=== PATIENT | female | born 1935 | race Caucasian/White ===

== ENCOUNTER 2018-10-10 08:35 | Inpatient (IN) ==
--- NOTE | 2018-09-25 16:45 | PAT Medication Instructions ---
Medication Instructions Date of Service September 26, 2018 Home Medications acetaminophen [Tylenol Extra Strength] 1,000 mg PO TID NEEDED fentanyl 50 mcg TRANSDERMAL Q72H metoprolol tartrate 50 mg PO BID omeprazole 20 mg PO BID oxybutynin chloride 5 mg PO BID NEEDED warfarin 2 mg PO HS furosemide 40 mg PO QAM oxycodone 5 mg PO Q4H NEEDED sennosides [senna] 17.2 mg PO HS solifenacin [Vesicare] 5 mg PO QAM Continue as directed fentanyl 50 mcg TRANSDERMAL Q72H ASK your prescriber and surgeon warfarin 2 mg PO HS DO NOT take the morning of surgery furosemide 40 mg PO QAM Take morning of surgery With a small sip of water, OTHERWISE NOTHING TO EAT OR DRINK AFTER MIDNIGHT: acetaminophen [Tylenol Extra Strength] 1,000 mg PO TID NEEDED (if needed; stop 4 hours before midnight) fentanyl 50 mcg TRANSDERMAL Q72H metoprolol tartrate 50 mg PO BID omeprazole 20 mg PO BID oxybutynin chloride 5 mg PO BID NEEDED (if needed) solifenacin [Vesicare] 5 mg PO QAM oxycodone 5 mg PO Q4H NEEDED (if needed) Take evening before surgery acetaminophen [Tylenol Extra Strength] 1,000 mg PO TID NEEDED (if needed) fentanyl 50 mcg TRANSDERMAL Q72H metoprolol tartrate 50 mg PO BID omeprazole 20 mg PO BID oxybutynin chloride 5 mg PO BID NEEDED (if needed) sennosides [senna] 17.2 mg PO HS oxycodone 5 mg PO Q4H NEEDED (if needed) Other Notes If you have any questions please call us at [phone] or [phone] or [phone] or [phone]
--- NOTE | 2018-09-26 11:03 | Anesthesiology Consultation ---
Date of Service September 26, 2018 Assessment & Plan (1) Encounter for pre-operative examination: - No prior anesthesia records available. +Limited neck extension that may make intubation difficult. - Will schedule patient for arterial line due to her multiple comorbidities. Chart Review Chart Review: Acceptable Risk for Surgery and Patient seen in Pre Admission Testing Consults Requested medical (Dr. Joe) Patient was last seen by PCP, Dr. Joe, on 08/22/18 for monthly visit. An addendum was added to this note on 09/25 which states "I see no contraindication for the elected surgery." Teaching & Discussion Pre-Anesthesia Teaching/Discussion Notes: Instructed NPO after midnight before surgery, except medications with 15 cc of water. Medication instructions provided according to the PAT guidelines. History Surgery Operation Date: 10/10/18 08:15 Proposed Procedures p T10-T11, T11-T12, T12-L1, L1-L2, L2-L3 Removal Spinal Rods - Isaac Felix, Height/Weight Height: 5 ft 5 in Weight: 66.678 kg Allergies Allergy/AdvReac Type Severity Reaction Status Date / Time hydrocodone AdvReac Intermediate change in Verified 09/24/18 08:39 mental status - CONFUSION gabapentin AdvReac Unknown altered Unverified 09/24/18 08:39 mental status - CONFUSION Medications Home Medications Medication Instructions Recorded Confirmed Last Taken acetaminophen [Tylenol Extra 1,000 mg PO TID PRN 09/12/18 09/24/18 09/12/18 Strength] fentanyl 50 mcg TRANSDERMAL Q72H 09/12/18 09/24/18 09/09/18 metoprolol tartrate 50 mg PO BID 09/12/18 09/24/18 09/12/18 omeprazole 20 mg PO BID 09/12/18 09/24/18 09/12/18 oxybutynin chloride 5 mg PO BID PRN 09/12/18 09/24/18 Unknown warfarin 2 mg PO HS 09/12/18 09/24/18 09/11/18 furosemide 40 mg PO QAM 09/24/18 09/24/18 Unknown oxycodone 5 mg PO Q4H PRN 09/24/18 09/24/18 Unknown sennosides [senna] 17.2 mg PO HS 09/24/18 09/24/18 Unknown solifenacin [Vesicare] 5 mg PO QAM 09/24/18 09/24/18 Unknown Past Medical History Medical History ARF (acute renal failure) HX. Atrial fibrillation Chronic back pain Deep vein thrombosis RIGHT LEG ~2010. Degenerative disc disease Fecal incontinence GERD (gastroesophageal reflux disease) GI bleed [address] History of blood clots Hx of cystitis Hyperlipidemia Hypertension Hypothyroidism HX OF TAKING SYNTHROID, NO LONGER TAKES. Indwelling Remy catheter present On anticoagulant therapy Osteoarthritis Peptic ulcer disease Peripheral vascular disease Pulmonary embolism S/P SURGICAL PROCEDURE (~10 YEARS AGO) Urinary tract infection Exercise / Class Metabolic Activity IV < 2 Limit ADL/Bedbound (Wheelchair bound - does help with some ADLs) Past Family History Family History Daughter FHx: breast cancer Family history of diabetes mellitus Father Family history of esophageal cancer Family history of diabetes mellitus Mother Family history of diabetes mellitus Father No problems noted. Past Surgical History Surgical History History of back surgery Fusion of spine History of angioplasty of peripheral vessel RIGHT LEG @ [facility] ~2010 FOLLOWING DVT History of bilateral tubal ligation History of colonoscopy History of dilatation and curettage History of esophagogastroduodenoscopy (EGD) History of tooth extraction S/P insertion of IVC (inferior vena caval) filter Past Anesthesia History No Hx of Anesthesia Complications and No Family Hx of Anesthesia Complications History of PONV No Hx of PONV and No Hx of Motion Sickness Social History Smoking Status: Former smoker tobacco type: cigarettes Smoking cigarettes per day: 1 PPD Do You Dip or Chew Tobacco: No Smoking End Date: 2003 Hx Alcohol Use: No Hx Substance Use: Yes substance use type: does not use Review of Systems Patient denies chest pain, shortness of breath, dyspnea on exertion, cough, wheezing, palpitations. +Joint Pain (Back, Knee) +Acid Reflux (Controlled with current medications) +Heart Palpitations (A. Fib) Physical Exam Vital Signs BP:148/84 P: 73 R: 16 T: 97.6 SPO2: 99% on RA ENMT Mouth: + edentulous Thyromental Distance: < 3.5 Finger Breadths (3) Mallampati Class: II Neck normal visual inspection, trachea midline and + limited neck extension Respiratory normal respiratory effort Auscultation: lungs clear to auscultation bilaterally Cardiovascular Rate/Rhythm: + abnormal rate and + abnormal rhythm Heart Sounds: no murmur Vessels: no carotid bruit Irregularly irregular rate/rhythm - consistent with a. fib Neurologic moves all extremities Psychiatric Orientation: alert and oriented x 3 Testing Laboratory Results 09/26/18 10:57 09/26/18 10:57 PT 15.3 Seconds (9.0-12.0) H 09/26/18 10:57 INR 1.5 (0.9-1.1) H 09/26/18 10:57 APTT 36.2 Seconds (21.0-31.0) H 09/26/18 10:57 Electrocardiogram Date: 09/26/18 A. Flutter with variable A-V block Nonspecific T wave abnormality When compared with ECG of 09/12/18, Previous ECG has undetermined rhythm, needs review Nonspecific T wave abnormality now evident in lateral leads Chest X-Ray Date: 09/12/18 Findings: + NAD FINDINGS: Cardiac silhouette is enlarged, unchanged. Patient is slightly rotated towards the left. Mild chronic interstitial coarsening. No pneumothorax, pleural e ffusion or overt pulmonary edema. Linear subsegmental left basilar opacities. Degenerative changes of the shoulders and spine. Chronic left hemidiaphragm elevation. Fusion hardware of the lumbar spine. IMPRESSION: 1. Cardiomegaly without overt pulmonary edema. 2. Chronic left hemidiaphragmatic elevation with linear subsegmental left basilar opacities suggestive of atelectasis. Other Testing CT thoracic spine wo con, CT lumbar spine wo con 09/12/18 IMPRESSION: 1. No acute fracture or subluxation of the thoracic or lumbar spine identified. 2. Laminectomy with posterior interbody desean and screw fusion at T12-S1. Lucency surrounding the bilateral S1 screws has progressively worsened from 2015 suggestive of hardware loosening. No evidence of hardware fracture. 3. Urothelial thickening about the right renal pelvis, renal collecting system and right ureter with moderate right-sided hydroureteronephrosis, nonspecific. 4. Additional findings as above.
[2018-09-26 11:15] LABS: Basophils # (auto) 0.05 K/uL (0-0.2); Basophils % (auto) 0.6 %; Eosinophils # (auto) 0.22 K/uL (0-0.5); Eosinophils % (auto) 2.7 %; Hematocrit (blood only) 34.3 % (37-47); Hemoglobin 10.9 g/dL (12.0-16.0); Immature Granulocytes # (auto) 0.01 K/uL (0.00-0.02); Immature Granulocytes % (auto) 0.1 %; Lymphocytes # (auto) 2.25 K/uL (1.2-3.4); Lymphocytes % (auto) 27.2 %; Mean Corpuscular Hgb Conc 31.8 g/dL (32-36); Mean Platelet Volume 10.3 fL (7.4-10.4); Monocytes # (auto) 0.41 K/uL (0.11-0.59); Neutrophils # (auto) 5.32 K/uL (1.4-6.5); Neutrophils % (auto) 64.4 %; Platelet Count 394 K/uL (130-400); RDW Coefficient of Variation 14.8 % (11.5-14.5); RDW Standard Deviation 50.3 fL (36.4-46.3); Red Blood Count 3.65 M/uL (4.2-5.4); White Blood Count 8.26 K/uL (4.8-10.8)
[2018-09-26 11:27] LABS: INR 1.5 (0.9-1.1); Partial Thromboplastin Ratio 1.3; Partial Thromboplastin Time 36.2 Seconds (21.0-31.0); Prothrombin Time 15.3 Seconds (9.0-12.0)
[2018-09-26 17:22] LABS: BUN Creatinine Ratio 15.7 (10-20); Calcium 9.3 mg/dl (8.5-10.1); Creatinine Clr Calc Pharmacy 18.2 ml/min; Est GFR (African American) 24.2; Est GFR (Non-African American) 20.9; Potassium 4.3 mmol/L (3.5-5.1)
--- NOTE | 2018-10-09 12:18 | History and Physical Report ---
DATE OF ADMISSION: 10/10/2018 HISTORY OF PRESENT ILLNESS: Sarah is delightful. She is 82. She has a complex spinal problem. She has back pain, breakdown of skin, breakdown of implants. She had remote surgery, did well, fortunately the implants have broken down and pulled out and causing skin breakdown. Fortunately, no fevers, sweats, chills, or bowel and bladder concerns. PAST MEDICAL HISTORY: Hypertension, AFib, blood clot, partial paralysis, kidney disease. PAST SURGICAL HISTORY: Complex lumbar spinal surgery. ALLERGIES: Negative. CURRENT MEDICATIONS: Fentanyl, Lortab. FAMILY HISTORY: Pulmonary emboli. SOCIAL HISTORY: . No alcohol, no tobacco. She is active in a wheelchair with assist. REVIEW OF SYSTEMS: Twelve system review negative for fevers, sweats, chills. Ear, nose and throat negative. Denies chest pain, palpitations. No nausea, vomiting, urgency, frequency, dysuria. She has skin pain and musculoskeletal back pain. PHYSICAL EXAMINATION: GENERAL: She is 4 feet 10 inches, 170, in distress. VITAL SIGNS: Blood pressure 130/80, pulse 80, respiratory rate 16, afebrile. HEENT: Pupils react to light and accommodation. Ear, nose and throat clear. CARDIAC: Normal S1, S2. LUNGS: Clear to auscultation. No rales, rhonchi, wheezing. ABDOMEN: Soft, nontender. She has breakdown of her hardware. She has pulling out the skin and she has skin breakdown. PLAN: Removal of spinal rods from T10-L3.
[~2018-10-10 08:35] MED LIST: CEFAZOLIN 2000MG 2,000 MG/15 ML SYR IV SCH; SODIUM CHLORIDE 0.9% 1000ML IV SCH
[2018-10-10] MEDS ORDERED: fentaNYL citrate 100 MCG/2 ML VIAL ONE ×3 (08:57→11:39)
[2018-10-10] MEDS ORDERED: LIDOCAINE HCL 2% 2 ML VIAL/AMP(20MG/ML) INFIL ONE ×2 (09:02→11:48)
[2018-10-10 09:27] LABS: INR 1.1 (0.9-1.1); Prothrombin Time 11.4 Seconds (9.0-12.0)
[2018-10-10] MEDS ORDERED: ATROPINE SULFATE 0.1 MG/ML 10ML SYR IV PRN (09:38)
[2018-10-10] MEDS ORDERED: ONDANSETRON INJ 2 MG/ML 2 ML VIAL IV PRN ×2 (09:38→13:56)
[2018-10-10] MEDS ORDERED: ePHEDrine sulfate 50 MG/ML AMP IV PRN (09:38)
[2018-10-10 10:13] LABS: INR 1.2 (0.9-1.1); Partial Thromboplastin Ratio 1.2; Partial Thromboplastin Time 32.2 Seconds (21.0-31.0); Prothrombin Time 11.8 Seconds (9.0-12.0)
[2018-10-10] MEDS ORDERED: VANCOMYCIN HCL 1000MG/20ML VIAL ONE (10:30)
[2018-10-10] MEDS ORDERED: THROMBIN FOR SOLN 20000 UNIT KIT ONE (10:31)
[2018-10-10] MEDS ORDERED: GELATIN SPONGE SZ 100 ONE (10:31)
[2018-10-10] MEDS ORDERED: BACITRACIN INJ 50,000 UNIT VIAL ONE (10:31)
[2018-10-10] MEDS ORDERED: BUPIVACAINE/EPINEPHRINE 0.5% MPF 1:200,000 30 ML VIAL ONE (10:31)
--- NOTE | 2018-10-10 10:46 | History & Physical Bridge Note ---
Date of Service October 10, 2018 History & Physical Bridge Note I have examined the patient, reviewed the History & Physical and in the interval since the performance of the History & Physical I have noted the following changes of clinical significance: no changes noted
[2018-10-10] MEDS ORDERED: ePHEDrine sulfate 50 MG/ML SYR ONE (11:48)
[2018-10-10] MEDS ORDERED: LARYING-O-JET KIT (LTA) ONE (11:48)
[2018-10-10] MEDS ORDERED: ONDANSETRON INJ 2 MG/ML 2 ML VIAL ONE (11:48)
[2018-10-10] MEDS ORDERED: NEOSTIGMINE METHYLSULFATE 5 MG/5 ML SYR ONE (11:48)
[2018-10-10] MEDS ORDERED: ROCURONIUM BROMIDE 10 MG/ML 5 ML VIAL ONE (11:48)
[2018-10-10] MEDS ORDERED: GLYCOPYRROLATE 0.2 MG/ML VIAL ONE (11:48)
[2018-10-10] MEDS ORDERED: DEXAMETHASONE SOD INJ 4 MG/ML VIAL ONE (11:48)
[2018-10-10] MEDS ORDERED: PROPOFOL IV EMULSION 10 MG/ML 20 ML VIAL IV ONE (11:48)
[2018-10-10] MEDS ORDERED: PHENYLEPHRINE 100MCG/ML 5ML SYR ONE (11:48)
[2018-10-10] MEDS: fentaNYL citrate 100 MCG/2 ML VIAL IV PRN ×4 (12:51→13:11)
--- NOTE | 2018-10-10 13:21 | Anesthesiology Progress Note ---
Date of Service October 10, 2018 Anesthesia Post Procedure Vital Signs Vital Signs: Temp Pulse Pulse Resp BP BP Pulse Ox 10/10/18 12:43 97.3 F L 101 H 16 177/109 H 100 10/10/18 09:10 98.8 F 82 18 149/93 H 98 Pain Intensity Medial Back: Pain Intensity: 5 Transfer of Care Handoff Completed per policy Notes Mental Status: alert / awake / arousable and participated in evaluation Patient Amnestic to Procedure: Yes Nausea / Vomiting: adequately controlled Pain: adequately controlled Airway Patency, RR, SpO2: stable & adequate BP & HR: stable & adequate Hydration State: stable & adequate Anesthetic Complications: no major complications apparent and Pt Satisfied with anesthetic care
[2018-10-10] MEDS ORDERED: HYDROmorphone INJ 1 MG/ML SYRINGE IV PRN (13:56)
[2018-10-10] MEDS ORDERED: MAGNESIUM HYDROXIDE SUSP 30 ML UDC PO PRN (13:56)
[2018-10-10] MEDS ORDERED: ACETAMINOPHEN 1,000 MG/100 ML VIAL IV PRN (13:56)
[2018-10-10] MEDS ORDERED: OXYBUTYNIN CHLORIDE 5 MG TAB PO PRN (13:56)
[2018-10-10] MEDS ORDERED: OXYCODONE HCL IR 5 MG TAB (IMMEDIATE RELEASE) PO PRN (13:56)
--- NOTE | 2018-10-10 15:10 | Hospitalist Consultation ---
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 She also has had 8 children so that unusual letter for her to have a coagulation dysfunction however the patient is on chronic Coumadin therapy and does have a Ellis filter in place which was placed in 2018. Surgery is restarted her Coumadin therapy 2 mg at bedtime (2) Atrial fibrillation: Patient is in rate controlled atrial fibrillation she is maintaining her metoprolol and restarted on her anticoagulation Patient is on Lasix therapy daily there is no defined records whether this is for a ejection fraction dysfunction or probably for peripheral edema. The patient states that her age give her medication and can also be to aid in blood pressure control. (3) Bladder dysfunction: Patient is a chronic indwelling Remy catheter it looks to be a new and likely placed in the OR she does use Vesicare and as needed oxybutynin for bladder spasms (4) Constipation: Patient typically uses senna at home for constipation this will be continued (5) DVT prophylaxis: coumadin therapy for dvt prevention History of Present Illness Attending Physician: Isaac Felix, 10/10/18 Anesthesia Type: General T10-T11, T11-T12, T12-L1, L1-L2, L2-L3 Removal Spinal Rods Surgeon: Isaac Felix History of Present Illness Patient was seen in her room postoperatively where she had removal of previous Spinal rods. She is feeling well she typically is amnestic from her waist down with chronic Remy catheter and inability to even bear weight.She stays at home with multiple caregivers.She suffers from atrial fibrillation taking Coumadin therapy and this was appropriately held preoperatively. She states that she takes various doses of her Coumadin typically being variable as of a 2 mg tablet and that her home caregivers do a fingerstick INR checked to determine her dose. Dr. Felix is appropriately ordered all of her typical home medications, wound consult is also in place. Allergies Allergy/AdvReac Type Severity Reaction Status Date / Time hydrocodone AdvReac Intermediate change in Verified 10/10/18 09:30 mental status - CONFUSION gabapentin AdvReac Unknown altered Verified 10/10/18 09:30 mental status - CONFUSION Home Medications Home Medications Medication Instructions Recorded Confirmed Type acetaminophen [Tylenol Extra 1,000 mg PO TID PRN 09/12/18 10/10/18 History Strength] fentanyl 50 mcg TRANSDERMAL Q72H 09/12/18 10/10/18 History metoprolol tartrate 50 mg PO BID 09/12/18 10/10/18 History omeprazole 20 mg PO BID 09/12/18 10/10/18 History oxybutynin chloride 5 mg PO BID PRN 09/12/18 10/10/18 History warfarin 2 mg PO HS 09/12/18 10/10/18 History furosemide 40 mg PO QAM 09/24/18 10/10/18 History oxycodone 5 mg PO Q4H PRN 09/24/18 10/10/18 History sennosides [senna] 17.2 mg PO HS 09/24/18 10/10/18 History solifenacin [Vesicare] 5 mg PO QAM 09/24/18 10/10/18 History Lovenox 30 mg SC 10/10/18 History Patient History Medical History ARF (acute renal failure) HX. Atrial fibrillation Chronic back pain Deep vein thrombosis RIGHT LEG ~2010. Degenerative disc disease GERD (gastroesophageal reflux disease) GI bleed [address] Hx of cystitis Hyperlipidemia Hypertension Hypothyroidism HX OF TAKING SYNTHROID, NO LONGER TAKES. Indwelling Remy catheter present On anticoagulant therapy Osteoarthritis Paraplegia Peptic ulcer disease Peripheral vascular disease Pulmonary embolism S/P SURGICAL PROCEDURE (~10 YEARS AGO) Urinary tract infection Fecal incontinence History of blood clots Surgical History History of back surgery Fusion of spine History of angioplasty of peripheral vessel RIGHT LEG @ [place] ~2010 FOLLOWING DVT History of bilateral tubal ligation History of colonoscopy History of dilatation and curettage History of esophagogastroduodenoscopy (EGD) History of tooth extraction S/P insertion of IVC (inferior vena caval) filter Family History Daughter FHx: breast cancer Family history of diabetes mellitus Father Family history of esophageal cancer Family history of diabetes mellitus Mother Family history of diabetes mellitus Father No problems noted. Social History Preferred Language: [place] Communication Ability: Effective Flash Ranging Crewmember Required: No Beliefs That Will Affect Care: None Current Living Situation: Alone Current Living Situation Comment: [facility] [employer]. Other Information That Helps Us Care for You: No Feels Safe at Home: Yes Safety Concerns: Feels Safe At This Time Smoking Status: Former smoker Tobacco Type: cigarettes ; Cigarettes Per Day: 1 PPD ; Do You Dip or Chew Tobacco: No ; Smoking End Date: 2003 ; Second Hand Exposure: No ; Tobacco Cessation Education Requested by Patient: No Hx Alcohol Use: No Hx Substance Use: Yes substance use type: does not use Review of Systems Review of Systems: ROS: well nourished well developed. No double vision blurry vision No problems with speech or swallowing No palpitations, chest pain or pressure No Wheezing or breathing issues No abdominal pain nausea vomiting Has a chronic indwelling Remy catheter No changes in memory or confusion Physical Exam Physical Exam: The patient appeared well nourished and normally developed. Vital signs as documented. Head exam is unremarkable. normocephalic, atraumatic Neck is without jugular venous distension, thyromegaly, or lymphademopathy Lungs are clear to auscultation and percussion. Cardiac exam reveals Irregularly irregular but rate controlled Abdominal exam reveals normal bowel sounds, no masses, no organomegaly, Nontender Extremities are with flexion deformities of both feet amnesia to her waist Neurologic exam is A&Ox3, Upper extremities can move with 4.5/5 strength equal bilaterally Psychologically seems neither anxious or depressed Results & Data Vital Signs (Past 12 Hours) Vital Signs Temp Pulse Pulse Pulse Resp BP BP 10/10/18 13:55 36.4 C L 101 H 16 10/10/18 13:40 104 H 20 145/82 H 10/10/18 13:35 105 H 20 143/81 H 10/10/18 13:34 36.4 C L 10/10/18 13:30 105 H 14 144/84 H 10/10/18 13:25 99 H 14 154/80 H 10/10/18 13:20 103 H 16 144/87 H 10/10/18 13:15 113 H 13 150/85 H 10/10/18 13:10 112 H 14 147/92 H 10/10/18 13:05 103 H 15 161/86 H 10/10/18 13:00 102 H 13 158/84 H 10/10/18 12:55 102 H 22 170/97 H 10/10/18 12:50 102 H 21 163/100 H 10/10/18 12:45 101 H 15 177/109 H 10/10/18 12:44 102 H 15 10/10/18 12:43 36.3 C L 101 H 101 H 19 181/110 H 10/10/18 09:10 37.1 C 82 18 149/93 H BP Pulse Ox 10/10/18 13:55 137/83 100 10/10/18 13:40 100 10/10/18 13:35 97 10/10/18 13:34 99 10/10/18 13:30 100 10/10/18 13:25 100 10/10/18 13:20 100 10/10/18 13:15 100 10/10/18 13:10 100 10/10/18 13:05 100 10/10/18 13:00 100 10/10/18 12:55 100 10/10/18 12:50 100 10/10/18 12:45 100 10/10/18 12:44 100 10/10/18 12:43 177/109 H 98 10/10/18 09:10 98 PG Care Time/CCT Total # of Minutes Spent Total Time Spent with Patient: Total time spent is greater than 50% in coordination of care (as documented) at patient's floor/unit and/or counseling patient:
[2018-10-10] MEDS: SODIUM CHLORIDE 0.9% 1000ML 1,000 ML IV SCH ×2 (15:24→20:24)
[2018-10-10] MEDS: VESICARE~ORDER AWAITING ACTION SCH ×2 (17:17→23:12)
[2018-10-10] MEDS: CEFAZOLIN 2000MG 2,000 MG/15 ML SYR IV SCH (18:11)
[2018-10-10] MEDS: DOCUSATE SODIUM 100 MG CAP PO SCH (20:27)
[2018-10-10] MEDS: METOPROLOL TARTRATE 50 MG TAB PO SCH (20:27)
[2018-10-10] MEDS: SENNA 8.6 MG TAB PO SCH (20:29)
[2018-10-10] MEDS: PANTOprazole 40 MG TAB PO SCH (20:29)
[2018-10-10] MEDS: WARFARIN SOD 2 MG TAB PO SCH (20:30)
--- NOTE | 2018-10-10 23:33 | Operative Report ---
DATE OF OPERATION: 10/10/2018 SURGEON: Isaac Fleix DO. SUPERVISOR OF OPERATIONS: Mikhail Barillas PA-C. PREOPERATIVE DIAGNOSES: Failure of hardware, pullout of hardware, skin ulceration, intractable back pain. POSTOPERATIVE DIAGNOSES: Failure of hardware, pullout of hardware, skin ulceration, intractable back pain. PROCEDURE: Include removal of thoracic and lumbar screw-desean constructs. The construct was removed roughly from T11 down to L4. DESCRIPTION OF PROCEDURE: The patient was taken to the operating room, general intubated anesthetic provided. The patient was placed prone. I scrubbed there several times with alcohol. We let that dry. Then we prepped her with ChloraPrep. We draped her sterile. We made a skin incision, protecting all the soft tissue areas and the ulcerative areas. We carefully and meticulously dissected the soft tissue, the fascial layer, the muscle pipe layer helper over the rods, which were protruding into her skin and almost through her skin. I was very pleased with the exposure. There were no apparent injury. We used various techniques including a upper cutter machine, curettes, screwdrivers, modified instruments to extract the spinal implants. I was pleased with this as well. We irrigated thoroughly. We placed some Gelfoam over the area. We placed vancomycin powder deep to the wound. We closed fascia with #1 Vicryl, subcuticular layer closed with 2-0 Vicryl and 3-0 nylon closure on the skin. We did not injure any other soft tissue structures. The Hemovac was activated. Sterile dressings applied. The patient was brought to PACU in improved, stable condition. Prior to the patient coming back to the OR, she was identified in the PACU, signed, and a bridge note provided. The surgical procedure took approximately 60 minutes. BLOOD LOSS: 50 mL. COUNTS: Sponge and needle count correct at the close of the procedure. I attest to the content of the Intraoperative Record and any orders documented therein. Any exception s are noted below.
[2018-10-11] MEDS: CEFAZOLIN 2000MG 2,000 MG/15 ML SYR IV SCH ×2 (01:36→09:52)
--- NOTE | 2018-10-11 08:07 | Anesthesiology Progress Note ---
Date of Service October 11, 2018 Anesthesia Post Procedure Vital Signs Vital Signs: Temp Pulse Pulse Pulse Pulse Resp BP 10/11/18 03:04 36.5 C 73 14 10/10/18 23:00 36.9 C 101 H 18 10/10/18 19:37 36.7 C 54 L 17 10/10/18 17:18 36.6 C 52 L 18 10/10/18 15:56 36.5 C 55 L 18 10/10/18 14:55 36.6 C 105 H 18 10/10/18 13:55 36.4 C L 101 H 16 10/10/18 13:40 104 H 20 145/82 H 10/10/18 13:35 105 H 20 143/81 H 10/10/18 13:34 36.4 C L 10/10/18 13:30 105 H 14 144/84 H 10/10/18 13:25 99 H 14 154/80 H 10/10/18 13:20 103 H 16 144/87 H 10/10/18 13:15 113 H 13 150/85 H 10/10/18 13:10 112 H 14 147/92 H 10/10/18 13:05 103 H 15 161/86 H 10/10/18 13:00 102 H 13 158/84 H 10/10/18 12:55 102 H 22 170/97 H 10/10/18 12:50 102 H 21 163/100 H 10/10/18 12:45 101 H 15 177/109 H 10/10/18 12:44 102 H 15 10/10/18 12:43 36.3 C L 101 H 101 H 19 181/110 H 10/10/18 09:10 37.1 C 82 18 BP BP Pulse Ox 10/11/18 03:04 129/76 99 10/10/18 23:00 119/72 99 10/10/18 19:37 116/77 98 10/10/18 17:18 107/66 96 10/10/18 15:56 126/83 98 10/10/18 14:55 137/85 100 10/10/18 13:55 137/83 100 10/10/18 13:40 100 10/10/18 13:35 97 10/10/18 13:34 99 10/10/18 13:30 100 10/10/18 13:25 10/10/18 13:20 10/10/18 13:15 10/10/18 13:10 10/10/18 13:05 10/10/18 13:00 10/10/18 12:55 10/10/18 12:50 10/10/18 12:45 10/10/18 12:44 10/10/18 12:43 177/109 H 98 10/10/18 09:10 149/93 H 98 Pain Intensity Medial Back: Pain Intensity: 4 Notes Mental Status: alert / awake / arousable and participated in evaluation Patient Amnestic to Procedure: Yes Nausea / Vomiting: adequately controlled Pain: adequately controlled Airway Patency, RR, SpO2: stable & adequate BP & HR: stable & adequate Hydration State: stable & adequate Anesthetic Complications: no major complications apparent and Pt Satisfied with anesthetic care
[2018-10-11] MEDS: METOPROLOL TARTRATE 50 MG TAB PO SCH ×2 (08:22→21:27)
[2018-10-11] MEDS: PANTOprazole 40 MG TAB PO SCH ×2 (08:22→21:26)
[2018-10-11] MEDS: DOCUSATE SODIUM 100 MG CAP PO SCH ×2 (08:23→21:26)
[2018-10-11] MEDS: VESICARE~ORDER AWAITING ACTION SCH ×3 (08:23→23:15)
[2018-10-11] MEDS: FUROSEMIDE 40 MG TAB PO SCH (08:23)
[2018-10-11 11:05] LABS: Red Blood Count 3.04 M/uL (4.2-5.4); White Blood Count 12.27 K/uL (4.8-10.8)
[2018-10-11 11:06] LABS: Basophils # (auto) 0.01 K/uL (0-0.2); Basophils % (auto) 0.1 %; Eosinophils # (auto) 0.01 K/uL (0-0.5); Eosinophils % (auto) 0.1 %; Hematocrit (blood only) 28.3 % (37-47); Hemoglobin 8.9 g/dL (12.0-16.0); Immature Granulocytes # (auto) 0.04 K/uL (0.00-0.02); Immature Granulocytes % (auto) 0.3 %; Lymphocytes # (auto) 2.11 K/uL (1.2-3.4); Lymphocytes % (auto) 17.2 %; Mean Corpuscular Hgb Conc 31.4 g/dL (32-36); Mean Corpuscular Volume 93.1 fL (80-100); Mean Platelet Volume 9.8 fL (7.4-10.4); Monocytes # (auto) 0.83 K/uL (0.11-0.59); Monocytes % (auto) 6.8 %; Neutrophils # (auto) 9.27 K/uL (1.4-6.5); Neutrophils % (auto) 75.5 %; Platelet Count 334 K/uL (130-400); RDW Coefficient of Variation 15.3 % (11.5-14.5); RDW Standard Deviation 52.2 fL (36.4-46.3)
[2018-10-11 11:15] LABS: INR 1.3 (0.9-1.1); Prothrombin Time 12.8 Seconds (9.0-12.0)
[2018-10-11 11:23] LABS: Calcium 8.6 mg/dl (8.5-10.1); Creatinine Clr Calc Pharmacy 18.3 ml/min; Est GFR (Non-African American) 19.9; Potassium 4.3 mmol/L (3.5-5.1)
[2018-10-11] MEDS: OXYCODONE HCL IR 5 MG TAB (IMMEDIATE RELEASE) PO PRN ×2 (11:35→15:23)
--- NOTE | 2018-10-11 14:16 | Post Operative Brief Note ---
PG Immediate Post Op with CF Date of Surgery October 10, 2018 Pre & Post Diagnosis Operation Date: 10/10/18 10:35 Pre-Op Diagnosis: Loosening Hardware Post-Op Diagnosis: Loosening Hardware Procedure Operation Date: 10/10/18 10:35 Actual Procedures p T10-T11, T11-T12, T12-L1, L1-L2, L2-L3 Removal Spinal Rods(Not Applicable) - Isaac Felix DO Surgeon Isaac Felix DO Archeology Professor yamil lim Estimated Blood Loss 50 Findings Consistent with Post-Op Diagnosis Specimens Specimen Description: None per surgeon. Drains Remy Catheter (Remy intact and patent for clear yellow urine on arrival to OR) and Hemovac Drain
--- NOTE | 2018-10-11 15:27 | Wound Consultation ---
Date of Consultation October 11, 2018 Assessment & Plan (1) Pressure ulcer of right upper back, stage 1: Patient with atypical stage I pressure ulcers of her mid back. These appear to be related to spinal hardware which was removed during this admission. Continue to cover wounds with Xeroform at this time. Would consider switching Aquacel on discharge. No debridement required at this time. Thank you for allowing me to participate in the care of this patient. Please not hesitate to call with any questions. We will see patient 1 week after discharge. (2) Pressure ulcer of left upper back, stage 1: History of Present Illness Attending Physician: Isaac Felix DO Is an 82-year-old female with a history of back surgery and loosening hardware who is status post removal of hardware. Being consulted for superficial ulcers due to the loosening hardware. Allergies Allergy/AdvReac Type Severity Reaction Status Date / Time hydrocodone AdvReac Intermediate change in Verified 10/10/18 09:30 mental status - CONFUSION gabapentin AdvReac Unknown altered Verified 10/10/18 09:30 mental status - CONFUSION Home Medications Home Medications Medication Instructions Recorded Confirmed Type acetaminophen [Tylenol Extra 1,000 mg PO TID PRN 09/12/18 10/10/18 History Strength] fentanyl 50 mcg TRANSDERMAL Q72H 09/12/18 10/10/18 History metoprolol tartrate 50 mg PO BID 09/12/18 10/10/18 History omeprazole 20 mg PO BID 09/12/18 10/10/18 History oxybutynin chloride 5 mg PO BID PRN 09/12/18 10/10/18 History warfarin 2 mg PO HS 09/12/18 10/10/18 History furosemide 40 mg PO QAM 09/24/18 10/10/18 History oxycodone 5 mg PO Q4H PRN 09/24/18 10/10/18 History sennosides [senna] 17.2 mg PO HS 09/24/18 10/10/18 History solifenacin [Vesicare] 5 mg PO QAM 09/24/18 10/10/18 History Lovenox 30 mg SC 10/10/18 History Patient History Medical History ARF (acute renal failure) HX. Atrial fibrillation Chronic back pain Deep vein thrombosis RIGHT LEG ~2010. Degenerative disc disease GERD (gastroesophageal reflux disease) GI bleed [address] Hx of cystitis Hyperlipidemia Hypertension Hypothyroidism HX OF TAKING SYNTHROID, NO LONGER TAKES. Indwelling Remy catheter present On anticoagulant therapy Osteoarthritis Paraplegia Peptic ulcer disease Peripheral vascular disease Pulmonary embolism S/P SURGICAL PROCEDURE (~10 YEARS AGO) Urinary tract infection Fecal incontinence History of blood clots Surgical History History of back surgery Fusion of spine History of angioplasty of peripheral vessel RIGHT LEG @ [facility] ~2010 FOLLOWING DVT History of bilateral tubal ligation History of colonoscopy History of dilatation and curettage History of esophagogastroduodenoscopy (EGD) History of tooth extraction S/P insertion of IVC (inferior vena caval) filter Family History Daughter FHx: breast cancer Family history of diabetes mellitus Father Family history of esophageal cancer Family history of diabetes mellitus Mother Family history of diabetes mellitus Father No problems noted. Social History Preferred Language: Nigerian Communication Ability: Effective Management Consulting Required: No Beliefs That Will Affect Care: None Current Living Situation: Alone Current Living Situation Comment: [facility] [employer] [facility]. Other Information That Helps Us Care for You: No Feels Safe at Home: Yes Safety Concerns: Feels Safe At This Time Smoking Status: Former smoker Tobacco Type: cigarettes ; Cigarettes Per Day: 1 PPD ; Do You Dip or Chew Tobacco: No ; Smoking End Date: 2003 ; Second Hand Exposure: No ; Tobacco Cessation Education Requested by Patient: No Hx Alcohol Use: No Hx Substance Use: Yes substance use type: does not use Review of Systems Review of Systems: All systems reviewed & are unremarkable except as noted in HPI & below Physical Exam Skin: Left medial back wound measuring 1.7 x 1 x 0.1 cm. Right lateral back measuring 1.5 x 1.2 cm. Right medial back measuring 1.5 x 1.5 cm. Neurologic: awake; not confused Psychiatric: A+Ox3, euthymic affect Results & Data Vital Signs (Past 12 Hours) Vital Signs Temp Pulse Resp BP Pulse Ox 10/11/18 14:35 80 18 104/68 96 10/11/18 14:03 70 18 98/62 L 98 10/11/18 12:07 36.7 C 79 18 120/73 97 10/11/18 10:05 98 10/11/18 08:17 36.6 C 60 18 137/77 97
[2018-10-11] MEDS: HYDROmorphone INJ 0.5 MG/0.5 ML SYR IV PRN (16:34)
[2018-10-11] MEDS: fentaNYL 50 MCG/HR TDSY TD SCH ×2 (17:21→18:38)
--- NOTE | 2018-10-11 17:34 | Hospitalist Progress Note ---
Date of Service October 11, 2018 Assessment & Plan (1) Failed back surgical syndrome: Patient is POD #1 status post spinal hardware removal from T10-L4 with Dr. Felix -Had protrusion of hardware to the back and has chronic wounds Is having some pain but has also been off of her chronic fentanyl patch -Restart home Fentanyl patch -Continue oxycodone as needed for breakthrough pain as well as IV Dilaudid as needed -Orthopedic surgery managing postoperative care -Hemoglobin with a 2 g drop down to 8.9 today likely from blood loss anemia from surgery -Follow CBC in the morning (2) Pulmonary embolism: Patient had multiple PEs and DVTs in the past. -on chronic Coumadin therapy and does have a [place] filter in place which was placed in 2018. -Surgery restarted her Coumadin therapy 2 mg at bedtime INR today Is 1.3 -Follow INR in the morning (3) Atrial fibrillation: Patient is in rate controlled atrial fibrillation she is maintaining her metoprolol and restarted on her anticoagulation Patient is on Lasix therapy daily there is no defined records whether this is for a ejection fraction dysfunction or probably for peripheral edema -She plans on getting a referral to a documentation lead after discharge for routine follow-up (4) Bladder dysfunction: Patient is a chronic indwelling Remy catheter it looks to be a new and likely placed in the OR she does use Vesicare and as needed oxybutynin for bladder spasms (5) Constipation: Patient typically uses senna at home for constipation this will be continued -Also on docusate -Add on MiraLAX daily (6) Pressure ulcer of left upper back, stage 1: Seen by wound care -Plan for follow-up 1 week after discharge -Continue wound care as per wound care MD instructions (7) Pressure ulcer of right upper back, stage 1: As above (8) CKD (chronic kidney disease) stage 4, GFR 15-29 ml/min: Baseline creatinine based on previous labs looks to be around 2.2-2.4 There is mention in the PCP notes of previous nephrolithiasis with hydronephr osis as the cause of her CKD with one nonfunctioning kidney apparently -Avoid nephrotoxins -Renally dose medications when appropriate -Creatinine here is stable at her baseline -Follow BMP in the morning (9) 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 Otherwise, denies chest pain or shortness of breath,. She is quite constipated and has not moved her bowels in 2 days, feels her abdomen is getting distended. She is passing lots of flatus. Review of Systems Review of Systems: All systems reviewed & are unremarkable except as noted in HPI & below Physical Exam Constitutional: WD/WN, vitals as above Eyes: + anicteric sclerae ENMT: Ears: no hearing impairment Neck: trachea midline, no thyromegaly Respiratory: normal respiratory effort, lungs clear to auscultation Cardiovascular: Rate/Rhythm: regular rate and + irregularly irregular Heart Sounds: no murmur Extremities: no edema Gastrointestinal (Abdomen): normal bowel sounds, soft, nontender, no hepatosplenomegaly Inspection/Auscultation: + abdomen distended (Mild distention but soft) Musculoskeletal: Extremities: extremities normal to inspection; no cyanosis and no clubbing Skin: no rashes, warm and dry Neurologic: + focal motor deficit (Bilateral lower extremities with weakness) and awake Psychiatric: A+Ox3, euthymic affect Genitourinary: + abnormal external appearance (Remy catheter in place) Results & Data Vital Signs (Past 12 Hours) Vital Signs Temp Pulse Resp BP Pulse Ox 10/11/18 15:57 36.8 C 78 18 125/75 97 10/11/18 14:35 80 18 104/68 96 10/11/18 14:03 70 18 98/62 L 98 10/11/18 12:07 36.7 C 79 18 120/73 97 10/11/18 10:05 98 10/11/18 08:17 36.6 C 60 18 137/77 97 Laboratory Results 10/11/18 10/11/18 10/11/18 Range/Units 10:40 10:40 10:40 WBC 12.27 H (4.8-10.8) K/uL RBC 3.04 L (4.2-5.4) M/uL Hgb 8.9 L (12.0-16.0) g/dL Hct 28.3 L (37-47) % MCV 93.1 (80-100) fL MCH 29.3 (25-34) pg MCHC 31.4 L (32-36) g/dL RDW Std Deviation 52.2 H (36.4-46.3) fL RDW Coeff of Mayela 15.3 H (11.5-14.5) % Plt Count 334 (130-400) K/uL MPV 9.8 (7.4-10.4) fL Immature Gran % (Auto) 0.3 % Neut % (Auto) 75.5 % Lymph % (Auto) 17.2 % [place] % (Auto) 6.8 % Eos % (Auto) 0.1 % Baso % (Auto) 0.1 % Immature Gran # (Auto) 0.04 H (0.00-0.02) K/uL Neut # (Auto) 9.27 H (1.4-6.5) K/uL Lymph # (Auto) 2.11 (1.2-3.4) K/uL [place] # (Auto) 0.83 H (0.11-0.59) K/uL Eos # (Auto) 0.01 (0-0.5) K/uL Baso # (Auto) 0.01 (0-0.2) K/uL PT 12.8 H (9.0-12.0) Seconds INR 1.3 H (0.9-1.1) Sodium 137 (136-145) mmol/L Potassium 4.3 (3.5-5.1) mmol/L Chloride 107 (98-107) mmol/L Carbon Dioxide 21 (21-32) mmol/L Anion Gap 9.0 (3-11) BUN 31 H (7-18) mg/dl Creatinine 2.23 H (0.6-1.2) mg/dl Est Cr Clr Drug Dosing 18.3 ml/min Est GFR ( Amer) 23.0 Est GFR (Non-Af Amer) 19.9 BUN/Creatinine Ratio 14.0 (10-20) Glucose 113 H (70-99) mg/dl Calcium 8.6 (8.5-10.1) mg/dl PG Care Time/CCT Total # of Minutes Spent Total Time Spent with Patient: Total time spent is greater than 50% in coordination of care (as documented) at patient's floor/unit and/or counseling patient:
[2018-10-11] MEDS: POLYETHYLENE (MIRALAX) 17 GM PACK PO SCH (18:38)
[2018-10-11] MEDS: SENNA 8.6 MG TAB PO SCH (21:26)
[2018-10-11] MEDS: WARFARIN SOD 2 MG TAB PO SCH (21:26)
[2018-10-11] MEDS: CHECK FENTANYL PATCH PLACEMENT SCH (23:28)
[2018-10-12] MEDS ORDERED: BISACODYL 5 MG TABEC PO PRN (06:00)
[2018-10-12 06:24] LABS: Basophils # (auto) 0.05 K/uL (0-0.2); Basophils % (auto) 0.5 %; Eosinophils # (auto) 0.16 K/uL (0-0.5); Eosinophils % (auto) 1.4 %; Hematocrit (blood only) 29.4 % (37-47); Hemoglobin 9.1 g/dL (12.0-16.0); Immature Granulocytes # (auto) 0.05 K/uL (0.00-0.02); Immature Granulocytes % (auto) 0.5 %; Lymphocytes # (auto) 3.17 K/uL (1.2-3.4); Lymphocytes % (auto) 28.7 %; Mean Corpuscular Volume 92.7 fL (80-100); Monocytes # (auto) 0.78 K/uL (0.11-0.59); Monocytes % (auto) 7.1 %; Neutrophils # (auto) 6.83 K/uL (1.4-6.5); Neutrophils % (auto) 61.8 %; Platelet Count 344 K/uL (130-400); RDW Coefficient of Variation 15.5 % (11.5-14.5); RDW Standard Deviation 52.7 fL (36.4-46.3); Red Blood Count 3.17 M/uL (4.2-5.4); White Blood Count 11.04 K/uL (4.8-10.8)
[2018-10-12 07:00] LABS: BUN Creatinine Ratio 15.4 (10-20); Calcium 8.5 mg/dl (8.5-10.1); Creatinine Clr Calc Pharmacy 16.4 ml/min; Est GFR (African American) 20.2; Est GFR (Non-African American) 17.4; Potassium 3.8 mmol/L (3.5-5.1)
[2018-10-12] MEDS: OXYCODONE HCL IR 5 MG TAB (IMMEDIATE RELEASE) PO PRN ×3 (08:14→20:45)
[2018-10-12] MEDS: VESICARE~ORDER AWAITING ACTION SCH ×3 (08:15→22:49)
[2018-10-12] MEDS: CHECK FENTANYL PATCH PLACEMENT SCH ×3 (09:07→23:37)
[2018-10-12] MEDS: POLYETHYLENE (MIRALAX) 17 GM PACK PO SCH ×2 (09:10→09:13)
[2018-10-12] MEDS: PANTOprazole 40 MG TAB PO SCH ×2 (09:10→20:40)
[2018-10-12] MEDS: DOCUSATE SODIUM 100 MG CAP PO SCH ×2 (09:10→20:39)
[2018-10-12] MEDS: FUROSEMIDE 40 MG TAB PO SCH (09:10)
[2018-10-12] MEDS: METOPROLOL TARTRATE 50 MG TAB PO SCH ×2 (10:24→20:52)
--- NOTE | 2018-10-12 12:22 | Hospitalist Progress Note ---
Date of Service October 12, 2018 Assessment & Plan (1) Failed back surgical syndrome: Patient is POD #2 status post spinal hardware removal from T10-L4 with Dr. Felix -Had protrusion of hardware to the back and has chronic wounds Pain improved with restarting her chronic fentanyl patch -Continue oxycodone as needed for breakthrough pain as well as IV Dilaudid as needed -Orthopedic surgery managing postoperative care -Hemoglobin with a 2 g drop down after surgery but stable at 9.1 today likely from blood loss anemia from surgery -Follow CBC in the morning (2) Pulmonary embolism: Patient had multiple PEs and DVTs in the past. -on chronic Coumadin therapy and does have a [place] filter in place which was placed in 2018. -Surgery restarted her Coumadin therapy 2 mg at bedtime INR was 1.3 yesterday, INR needs to be drawn again tomorrow -Follow INR in the morning (3) Atrial fibrillation: Patient is now some uncontrolled rates with her atrial fibrillation -Increase metoprolol to 75 twice daily -Continue Coumadin and follow INR as above Patient is on Lasix therapy daily there is no defined records whether this is for a ejection fraction dysfunction or probably for peripheral edema -She plans on getting a referral to a director of government sales after discharge for routine follow-up (4) Bladder dysfunction: Patient is a chronic indwelling Remy catheter it looks to be a new and likely placed in the OR she does use Vesicare and as needed oxybutynin for bladder spasms (5) Constipation: Patient typically uses senna at home for constipation this will be continued -Also on docusate -Add on MiraLAX daily continue (6) Pressure ulcer of left upper back, stage 1: Seen by wound care -Plan for follow-up 1 week after discharge -Continue wound care as per wound care MD instructions (7) Pressure ulcer of right upper back, stage 1: As above (8) CKD (chronic kidney disease) stage 4, GFR 15-29 ml/min: Baseline creatinine based on previous labs looks to be around 2.2-2.4 There is mention in the PCP notes of previous nephrolithiasis with hydronephrosis as the cause of her CKD with one nonfunctioning kidney apparently Lumbar spine CT does show right chronic appearing hydronephrosis -Avoid nephrotoxins -Renally dose medications when appropriate -Creatinine here is stable at her baseline -Follow BMP in the morning (9) 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 Alfaro today, my colleague. I discussed the case with him as well. Review of Systems Review of Systems: All systems reviewed & are unremarkable except as noted in HPI & below Physical Exam Constitutional: WD/WN, vitals as above Eyes: PERRL, conjunctivae normal, anicteric sclerae + anicteric sclerae ENMT: external ear and nose normal, oropharynx normal Ears: no hearing impairment Neck: trachea midline, no thyromegaly Respiratory: normal respiratory effort, lungs clear to auscultation Cardiovascular: Rate/Rhythm: + tachycardic and + irregularly irregular Heart Sounds: no murmur Extremities: no edema Gastrointestinal (Abdomen): normal bowel sounds, soft, nontender, no hepatosplenomegaly Inspection/Auscultation: + abdomen distended (Mild distention but soft) Musculoskeletal: Extremities: extremities normal to inspection; no cyanosis and no clubbing Skin: no rashes, warm and dry Neurologic: + focal motor deficit (Bilateral lower extremities with weakness) and awake Psychiatric: A+Ox3, euthymic affect Genitourinary: + abnormal external appearance (Remy catheter in place) Results & Data Vital Signs (Past 12 Hours) Vital Signs Temp Pulse Resp BP Pulse Ox 10/12/18 08:51 36.3 C L 100 H 18 108/73 93 10/12/18 03:45 116 H PG Care Time/CCT Total # of Minutes Spent Total Time Spent with Patient: Total time spent is greater than 50% in coordination of care (as documented) at patient's floor/unit and/or counseling patient:
--- NOTE | 2018-10-12 16:10 | Hospitalist Progress Note ---
Date of Service October 12, 2018 Assessment & Plan (1) Failed back surgical syndrome: Patient is POD #2 status post spinal hardware removal from T10-L4 with Dr. Felix -Had protrusion of hardware to the back and has chronic wounds pain better with resuming Fentanyl patch -Continue oxycodone as needed for breakthrough pain as well as IV Dilaudid as needed -Orthopedic surgery managing postoperative care -Hemoglobin with a 2 g drop down to 8.9 after surgery, stable now at 9.1 -Follow CBC in the morning (2) Pulmonary embolism: Patient had multiple PEs and DVTs in the past. -on chronic Coumadin therapy and does have a [place] filter in place which was placed in 2018. -Surgery restarted her Coumadin therapy 2 mg at bedtime INR still subtherapeutic -Follow INR in the morning (3) Atrial fibrillation: rates slightly high, low 100's increase metoprolol to 75mg BID, follow for HR improvement Patient is on Lasix therapy daily there is no defined records whether this is for a ejection fraction dysfunction or probably for peripheral edema -She plans on getting a referral to a turbine mechanic after discharge for routine follow-up (4) Bladder dysfunction: Patient is a chronic indwelling Remy catheter it looks to be a new and likely placed in the OR she does use Vesicare and as needed oxybutynin for bladder spasms (5) Constipation: Patient typically uses senna at home for constipation this will be continued -Also on docusate -Add on MiraLAX daily (6) Pressure ulcer of left upper back, stage 1: Seen by wound care -Plan for follow-up 1 week after discharge -Continue wound care as per wound care MD instructions (7) Pressure ulcer of right upper back, stage 1: As above (8) CKD (chronic kidney disease) stage 4, GFR 15-29 ml/min: Baseline creatinine based on previous labs looks to be around 2.2-2.4 There is mention in the PCP notes of previous nephrolithiasis with hydronephrosis as the cause of her CKD with one nonfunctioning kidney apparently -Avoid nephrotoxins -Renally dose medications when appropriate Cr continues to be stable (9) 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 9 to 10 years ago She has wheelchair-bound and nonambulatory with bilateral foot drop -Supportive care Frequent repositioning in bed (10) DVT prophylaxis: coumadin therapy for dvt prevention Disposition-remain on surgical floor likely till Sunday when her home caregivers can to make arrangements to pick her up and bring her back home Subjective patient resting comfortably this morning, had to wake her up no complaints, she says her back pain much better with resuming Fentanyl patch she is eating well, moving her bowels discussed plans to potentially go home tomorrow, she agrees with this plan, getting care givers in place at home reviewed chart since admission reviewed labs, CBC shows normal WBC, Hb stable, BMP shows Cr stable at 2.4 which is baseline, electrolytes stable Review of Systems Review of Systems: All systems reviewed & are unremarkable except as noted in HPI & below Respiratory: no cough and no dyspnea Cardiovascular: no chest pain and no edema Musculoskeletal: + back pain Physical Exam Constitutional: WD/WN, vitals as above Eyes: PERRL, conjunctivae normal, anicteric sclerae ENMT: external ear and nose normal, oropharynx normal Neck: trachea midline, no thyromegaly Respiratory: normal respiratory effort, lungs clear to auscultation Cardiovascular: RRR, no murmur, no edema Gastrointestinal (Abdomen): normal bowel sounds, soft, nontender, no hepatosplenomegaly Musculoskeletal: Head/Neck/Chest: normocephalic and head atraumatic Spine: + limited thoraco-lumbar ROM and + pain with thoraco-lumbar ROM Extremities: + abnormal strength (profound weakness in legs) and + muscle atrophy (legs) Gait: + abnormal gait (cannot ambulate) Skin: no rashes, warm and dry Neurologic: patellar DTR's 2+ bilat, sensation intact and PERRL, EOMI, accommodation nl, no face palsy, no dysarthria Psychiatric: A+Ox3, euthymic affect Lymphatic: no cervical or axillary lymphadenopathy Results & Data Vital Signs (Past 12 Hours) Vital Signs Temp Pulse Resp BP Pulse Ox 10/12/18 15:40 37.7 C H 84 18 97/67 L 95 10/12/18 08:51 36.3 C L 100 H 18 108/73 93 Laboratory Results Laboratory Results - last 24 hr 10/12/18 10/12/18 05:44 05:44 WBC 11.04 H RBC 3.17 L Hgb 9.1 L Hct 29.4 L MCV 92.7 MCH 28.7 MCHC 31.0 L RDW Std Deviation 52.7 H RDW Coeff of Mayela 15.5 H Plt Count 344 MPV 10.0 Immature Gran % (Auto) 0.5 Neut % (Auto) 61.8 Lymph % (Auto) 28.7 [place] % (Auto) 7.1 Eos % (Auto) 1.4 Baso % (Auto) 0.5 Immature Gran # (Auto) 0.05 H Neut # (Auto) 6.83 H Lymph # (Auto) 3.17 [place] # (Auto) 0.78 H Eos # (Auto) 0.16 Baso # (Auto) 0.05 Sodium 137 Potassium 3.8 Chloride 105 Carbon Dioxide 24 Anion Gap 8.0 BUN 38 H Creatinine 2.49 H Est Cr Clr Drug Dosing 16.4 Est GFR ( Amer) 20.2 Est GFR (Non-Af Amer) 17.4 BUN/Creatinine Ratio 15.4 Glucose 108 H Calcium 8.5 Medications Administered Current Inpatient Medications Bisacodyl (Dulcolax) 5 mg PO DAILY PRN PRN Reason: Constipation Stop: 11/11/18 05:59 Docusate Sodium (Colace) 100 mg PO BID [facility] Stop: 11/09/18 20:59 Last Admin: 10/12/18 09:10 Dose: 100 mg Documented by: Fentanyl (Duragesic) 50 mcg TD Q3D [facility] Stop: 10/25/18 16:59 Last Admin: 10/11/18 18:38 Dose: 50 mcg Documented by: Furosemide (Lasix) 40 mg PO QAM [facility] Stop: 11/10/18 08:59 Last Admin: 10/12/18 09:10 Dose: 40 mg Documented by: Hydromorphone HCl (Dilaudid) 0.5 mg IV Q3H PRN PRN Reason: MODERATE Pain 4,5,6 Stop: 10/24/18 13:55 Last Admin: 10/11/18 16:34 Dose: 0.5 mg Documented by: Hydromorphone HCl (Dilaudid) 1 mg IV Q3H PRN PRN Reason: SEVERE Pain 7,8,9,10 Stop: 10/24/18 13:55 Last Admin: 10/11/18 23:28 Dose: 1 mg Documented by: Acetaminophen (Ofirmev) 1,000 mg in 100 mls @ 400 mls/hr IV Q8H PRN PRN Reason: Pain Stop: 11/09/18 13:55 Magnesium Hydroxide (Milk Of Magnesia) 30 ml PO DAILY PRN PRN Reason: Constipation Stop: 11/09/18 13:55 Metoprolol Tartrate (Lopressor) 75 mg PO BID [facility] Stop: 11/11/18 08:59 Last Admin: 10/12/18 10:24 Dose: 75 mg Documented by: Cyndianeous (Order Awaiting Action) 1 ea N/A QS [facility] Stop: 11/09/18 15:59 Last Admin: 10/12/18 08:15 Dose: Not Given Documented by: Felipacellaneous (Fentanyl Patch Check Placement) 1 ea N/A QS [facility] Stop: 11/11/18 00:00 Last Admin: 10/12/18 09:07 Dose: 1 ea Documented by: Christian (Fentanyl Patch Remove & Waste) 1 ea N/A Q3D [facility] Stop: 11/13/18 16:58 Ondansetron HCl (Zofran) 4 mg IV Q6H PRN PRN Reason: Nausea And Vomiting Stop: 11/09/18 13:55 Oxybutynin Chloride (Ditropan) 5 mg PO BID PRN PRN Reason: Incontinence Stop: 11/09/18 13:55 Oxycodone HCl (Roxicodone Immediate Rel) 5 mg PO Q4H PRN PRN Reason: MODERATE Pain 4,5,6 Stop: 10/24/18 13:55 Oxycodone HCl (Roxicodone Immediate Rel) 10 mg PO Q4H PRN PRN Reason: SEVERE Pain 7,8,9,10 Stop: 10/24/18 13:55 Last Admin: 10/12/18 13:35 Dose: 10 mg Documented by: Pantoprazole Sodium (Protonix) 40 mg PO BID [facility] Stop: 11/09/18 20:59 Last Admin: 10/12/18 09:10 Dose: 40 mg Documented by: Polyethylene Glycol (Miralax Powder Packet) 17 gm PO DAILY [facility] Stop: 11/10/18 17:44 Last Admin: 10/12/18 09:13 Dose: Not Given Documented by: Sennosides (Senokot) 17.2 mg PO HS [facility] Stop: 11/09/18 20:59 Last Admin: 10/11/18 21:26 Dose: 17.2 mg Documented by: Warfarin Sodium (Coumadin) 2 mg PO HS [facility] Stop: 11/09/18 20:59 Last Admin: 10/11/18 21:26 Dose: 2 mg Documented by: PG Care Time/CCT Total # of Minutes Spent Total Time Spent with Patient: Total time spent is greater than 50% in coordination of care (as documented) at patient's floor/unit and/or counseling patient:
[2018-10-12] MEDS: HYDROmorphone INJ 0.5 MG/0.5 ML SYR IV PRN (16:14)
[2018-10-12] MEDS: SENNA 8.6 MG TAB PO SCH (20:38)
[2018-10-12] MEDS: WARFARIN SOD 2 MG TAB PO SCH (20:39)
--- NOTE | 2018-10-12 23:10 | Progress Note ---
DATE: 10/12/2018 SUBJECTIVE: Rebeca is alert, oriented this morning. She is taking p.o. She has substantial pain. I think it is postsurgical. She was completely pain free yesterday and nothing has changed. OBJECTIVE: Vital signs stable, afebrile. Wound protected and clean. ASSESSMENT: Status post removal of spinal implants for severe decubitus ulcerations. PLAN: Includes dressing change here today and discharge home tomorrow.
[2018-10-13] MEDS: PANTOprazole 40 MG TAB PO SCH (08:22)
[2018-10-13] MEDS: POLYETHYLENE (MIRALAX) 17 GM PACK PO SCH (08:22)
[2018-10-13] MEDS: FUROSEMIDE 40 MG TAB PO SCH (08:22)
[2018-10-13] MEDS: DOCUSATE SODIUM 100 MG CAP PO SCH (08:23)
[2018-10-13] MEDS: VESICARE~ORDER AWAITING ACTION SCH (08:23)
[2018-10-13] MEDS: CHECK FENTANYL PATCH PLACEMENT SCH (08:23)
[2018-10-13] MEDS: METOPROLOL TARTRATE 50 MG TAB PO SCH (08:23)
[2018-10-13] MEDS: OXYCODONE HCL IR 5 MG TAB (IMMEDIATE RELEASE) PO PRN (14:20)
--- NOTE | 2018-10-13 14:36 | Hospitalist Progress Note ---
Date of Service October 13, 2018 Assessment & Plan (1) Failed back surgical syndrome: Patient is POD #3 status post spinal hardware removal from T10-L4 with Dr. 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 -on chronic Coumadin therapy and does have a [place] filter in place which was placed in 2018. -Surgery restarted her Coumadin therapy 2 mg at bedtime INR still subtherapeutic -Follow INR as outpatient (3) Atrial fibrillation: rates slightly high, low 100's increased metoprolol to 75mg BID had some rates in the 50's over night will resume 50mg BID on discharge, looking back her HR usually 90-100 range, was this way in the beginning of the month Patient is on Lasix therapy daily there is no defined records whether this is for a ejection fraction dysfunction or probably for peripheral edema -She plans on getting a referral to a transport engineer after discharge for routine follow-up (4) Bladder dysfunction: Patient is a chronic indwelling Remy catheter it looks to be a new and likely placed in the OR she does use Vesicare and as needed oxybutynin for bladder spasms (5) Constipation: Patient typically uses senna at home for constipation this will be continued -Also on docusate -Add on MiraLAX daily continue (6) Pressure ulcer of left upper back, stage 1: Seen by wound care -Plan for follow-up 1 week after discharge -Continue wound care as per wound care MD instructions (7) Pressure ulcer of right upper back, stage 1: As above (8) CKD (chronic kidney disease) stage 4, GFR 15-29 ml/min: Baseline creatinine based on previous labs looks to be around 2.2-2.4 There is mention in the PCP notes of previous nephrolithiasis with hydronephrosis as the cause of her CKD with one nonfunctioning kidney apparently -Avoid nephrotoxins -Renally dose medications when appropriate Cr continues to be stable (9) 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 9 to 10 years ago She has wheelchair-bound and nonambulatory with bilateral foot drop -Supportive care Frequent repositioning in bed (10) DVT prophylaxis: coumadin therapy for dvt prevention d/c to home Subjective patient doing well, pain is controlled she is eating well plan for transport at 3pm, her care givers will be available at her home at 330 discharge completed by orthopedics she is medically stable Review of Systems Review of Systems: All systems reviewed & are unremarkable except as noted in HPI & below Musculoskeletal: + back pain (mild to moderate, well controlled) Physical Exam Constitutional: WD/WN, vitals as above Eyes: PERRL, conjunctivae normal, anicteric sclerae ENMT: external ear and nose normal, oropharynx normal Neck: trachea midline, no thyromegaly Respiratory: normal respiratory effort, lungs clear to auscultation Cardiovascular: RRR, no murmur, no edema Gastrointestinal (Abdomen): normal bowel sounds, soft, nontender, no hepatosplenomegaly Musculoskeletal: Head/Neck/Chest: normocephalic and head atraumatic Spine: + limited thoraco-lumbar ROM and + pain with thoraco-lumbar ROM Extremities: + abnormal strength (profound weakness in legs) and + muscle atrophy (legs) Gait: + abnormal gait (cannot ambulate) Skin: no rashes, warm and dry Neurologic: patellar DTR's 2+ bilat, sensation intact and PERRL, EOMI, accommodation nl, no face palsy, no dysarthria Psychiatric: A+Ox3, euthymic affect Lymphatic: no cervical or axillary lymphadenopathy Results & Data Vital Signs (Past 12 Hours) Vital Signs Temp Pulse Pulse Pulse Pulse Resp BP 10/13/18 14:26 36.9 C 105 H 109 H 82 54 L 18 103/69 10/13/18 07:17 36.9 C 82 18 BP Pulse Ox 10/13/18 14:26 114/72 92 10/13/18 07:17 114/72 92 PG Care Time/CCT Total # of Minutes Spent Total Time Spent with Patient: Total time spent is greater than 50% in coordination of care (as documented) at patient's floor/unit and/or counseling patient:
--- NOTE | 2018-10-23 03:28 | Discharge Summary ---
Rebeca was admitted to my service for a very rigorous lumbar spine surgery and in the thoracic spine with removal of instrumentation and hardware. She had a fairly uneventful course. She had significant pain 48 hours after, but then resolved. Discharged home safely on 10/13/2018 in improved, stable condition. Wound clean, dry. No chest pain, shortness of breath. ASSESSMENT: Status post lumbar spine surgery. PLAN: We discharged her home to home care and home health. We will see her back in the office for suture removal in approximately 10 days.
== END 2018-10-13 14:58 | disposition home health service (06) | DRG 496 ==
LOC: ASU 08:35 → 3E 08:35